=== PATIENT | male | born 2000 | race Caucasian/White ===

== ENCOUNTER 2022-02-28 18:53 | Emergency (ER) | payer OTHER ==
[~2022-02-28] VITALS: Ht 182.9 cm; Wt 68.0 kg
--- NOTE | 2022-02-28 18:53 | NUR ---
[employer] unit [id number] serial number [id number], [facility] [id number] at bed side
--- NOTE | 2022-02-28 19:10 | NUR ---
DR Escobar at bedside for MSE
[2022-02-28 19:16] LABS: HEMATOCRIT 33.2 % (36.7-47.1); MEAN CORPUSCULAR HEMOGLOBIN 30.2 uug (23.8-33.4); MEAN CORPUSCULAR VOLUME 85.5 fL (73.0-96.2); PLATELET COUNT (AUTO) 220 K/uL (152-348)
[2022-02-28 19:25] LABS: CARBON DIOXIDE 28 mmol/L (21-32); CHLORIDE 96 mmol/L (98-107); CREATININE 0.9 mg/dL (0.6-1.3); GLUCOSE 145 mg/dL (74-106); POTASSIUM 3.6 mmol/L (3.5-5.1); UREA NITROGEN, BLOOD 11 mg/dL (7-18)
[2022-02-28 19:29] LABS: ETHANOL < 3 MG/DL (0-0)
--- NOTE | 2022-02-28 19:30 | NUR ---
[employer] left. Patient is not detained anymore
--- NOTE | 2022-02-28 19:32 | NUR ---
patient is restless, wants to leave. informed ER asked patient to wait for DC instructions. Provided food and drink
--- NOTE | 2022-02-28 19:40 | NUR ---
Patient discharged to home in stable condition. Written and verbal after care instructions given. Patient verbalizes understanding of instructions. Stressed follow up or return to ER for worsening s/s. Patient is A/O x4, able to ambulate on steady gait, no CP, no SOB, no distress noted.
[2022-02-28 19:42] VITALS: BP 123/78
[2022-02-28 19:53] LABS: *BILIRUBIN,URIN 1+ (NEGATIVE); *BLOOD, URINE 1+ (NEGATIVE); *CLARITY,URINE CLEAR (CLEAR); *COLOR,URINE YELLOW (YELLOW); *KETONES,URINE 2+ (NEGATIVE); LEUKOCYTE ESTERASE ,URINE 1+ (NEGATIVE); NITRITE, URINE NEGATIVE (NEGATIVE); PH,URINE 6.5 (5.0-8.0); UGLUCOSE NEGATIVE (NEGATIVE)
[2022-02-28 20:11] LABS: *AMPHETAMINE, URINE NEGATIVE (NEGATIVE); *CANNABINOID, URINE POSITIVE (NEGATIVE); *COCCAINE, URINE NEGATIVE (NEGATIVE); *OPIATE, URINE POSITIVE (NEGATIVE); *PHENCYCLIDINE SCREEN,URINE NEGATIVE (NEGATIVE)
[2022-02-28 23:04] LABS: BACTERIA,URINE MODERATE /HPF (NONE SEEN); SQUAMOUS EPITHELIAL CELL,UR FEW /HPF (NONE SEEN)
== END 2022-02-28 19:43 | disposition home or self-care (01) ==
LOC: ER 18:57
DX: S50.812A Abrasion of left forearm, initial encounter (principal); S50.811A Abrasion of right forearm, initial encounter; X58.XXXA Exposure to other specified factors, initial encounter; Y93.39 Activity, other involving climbing, rappelling and jumping off; Y92.89 Other specified places as the place of occurrence of the external cause; F41.1 Generalized anxiety disorder; F43.0 Acute stress reaction; R00.0 Tachycardia, unspecified; D72.829 Elevated white blood cell count, unspecified; Z88.0 Allergy status to penicillin; F32.A Depression, unspecified
CPT/HCPCS: 36415; 85025; 87086; 93005; A4663; G0480